=== PATIENT | female | born 1965 | race Two or more races ===

== ENCOUNTER 2018-04-22 06:43 | Emergency (ER) | payer OTHER ==
[~2018-04-22] VITALS: Ht 160 cm; Wt 72.0 kg
[2018-04-22 09:10] VITALS: BP 145/96
== END 2018-04-22 09:11 | disposition home or self-care (01) ==
LOC: TRA 06:43
DX: S80.12XA Contusion of left lower leg, initial encounter (principal); S70.12XA Contusion of left thigh, initial encounter; V79.9XXA Bus occupant (driver) (passenger) injured in unspecified traffic accident, initial encounter; Y92.410 Unspecified street and highway as the place of occurrence of the external cause
CPT/HCPCS: 73552; 73590; 99281; 99283